=== PATIENT | female | born 1985 | race Caucasian/White ===

== ENCOUNTER → 2023-12-26 16:34 | Outpatient (CLI) | payer BC, SELFPAY ==
--- NOTE | 2023-12-26 16:35 | DI.US.S_ITS ---
PROCEDURE: US EXTREMITY NONVASC LOWER LT INDICATIONS: subcutaneous thigh mass TECHNIQUE: Real-time scanning was performed of the left proximal anterior thigh, with image documentation. COMPARISON: None. FINDINGS: Underneath the palpable abnormality in the anterior-proximal left thigh, there is a 1.1 x 0.4 x 1.1 cm subcutaneous mass that is hyperechoic to the surrounding fat without internal vascularity. IMPRESSION: Indeterminate 1.1 cm subcutaneous mass that does not match sonographic characteristics of a lipoma. Percutaneous sampling with ultrasound-guided biopsy or MRI of the left femur with and without contrast recommended for further evaluation. Dictated by: Bhanu Sawant M.D. on 12/27/2023 at 9:56 Approved by: Bhanu Sawant M.D. on 12/27/2023 at 10:00
== END ==
PROVIDERS: PCP Student in an Organized Health Care Education/Training Program; Referring Provider Student in an Organized Health Care Education/Training Program; Visit Provider Student in an Organized Health Care Education/Training Program
DX: R22.42 Localized swelling, mass and lump, left lower limb (principal)
CPT/HCPCS: 76882

== ENCOUNTER → 2024-01-17 13:39 | Outpatient (CLI) | payer BC, SELFPAY ==
--- NOTE | 2024-01-17 15:03 | DI.MRI.S_ITS ---
PROCEDURE: MR FEMUR LT WO/W CON INDICATIONS: subcutaneous mass TECHNIQUE: Noncontrast coronal T1 spin echo and STIR, sagittal T1 spin echo with fat saturation and STIR, axial T1 spin echo and T2 fast spin echo with fat saturation. After the administration of contrast, axial/sagittal/coronal T1 spin echo with fat saturation through the left thigh . COMPARISON: [facility], US, US EXTREMITY NONVASC LOWER LT, 12/26/2023, 17:02. FINDINGS: Image quality: Excellent. Bones: The visualized bone marrow demonstrates normal signal on all sequences. The overlying cortex appears intact. No abnormal intraosseous enhancement. Soft tissues: Fiducial marker is placed over antral medial aspect of left upper thigh. No enhancing soft tissue mass is identified. Subtle 8 x 6 mm slightly T2 hyperintense structure involving subcutaneous soft tissue just inferior to the site of the marker and show no contrast enhancement and is T1 isointense to adjacent subcutaneous fat. This is best seen on series 10, image 18. The scanned muscles demonstrate normal overall bulk and internal signal. IMPRESSION: 1. Finding is suggestive of a tiny 8 x 6 mm lipoma in left anterior upper thigh subcutaneous soft tissue at patient's reported area of palpable lump. No enhancing soft tissue mass or drainable fluid collection. 2. No marrow signal abnormality. No fracture or dislocation. No abnormal intraosseous enhancement. 3. No area of abnormal intramuscular enhancement. Dictated by: Romeo Bashir M.D. on 01/17/2024 at 15:23 Approved by: Romeo Bashir M.D. on 01/17/2024 at 16:59
== END ==
PROVIDERS: PCP Student in an Organized Health Care Education/Training Program; Referring Provider Student in an Organized Health Care Education/Training Program; Visit Provider Student in an Organized Health Care Education/Training Program
DX: R22.9 Localized swelling, mass and lump, unspecified (principal)
CPT/HCPCS: 73720; A9579

== ENCOUNTER → 2024-10-13 16:16 | Outpatient (CLI) | payer BC, SELFPAY ==
--- NOTE | 2024-10-13 16:18 | DI.RAD.S_ITS ---
PROCEDURE: XR FOOT RT MIN 3V INDICATIONS: FOOT PAIN TECHNIQUE: 3 views of the foot were acquired. COMPARISON: None. FINDINGS: Bones: No fractures or dislocations. No suspicious bony lesions. Soft tissues: No tibiotalar joint effusion. Achilles tendon appears normal. IMPRESSION: No acute bony abnormality. Approved by: Jorge A Moore M.D. on 10/14/2024 at 13:25
--- NOTE | 2024-10-13 16:18 | DI.RAD.S_ITS ---
PROCEDURE: XR FOOT LT MIN 3V INDICATIONS: FOOT PAIN TECHNIQUE: 3 views of the foot were acquired. COMPARISON: None. FINDINGS: Bones: No fractures or dislocations. No suspicious bony lesions. Soft tissues: No tibiotalar joint effusion. Achilles tendon appears normal. IMPRESSION: No acute bony abnormality. Approved by: Jorge A Moore M.D. on 10/14/2024 at 13:24
== END ==
PROVIDERS: PCP Student in an Organized Health Care Education/Training Program; Referring Provider Podiatrist Foot & Ankle Surgery; Visit Provider Podiatrist Foot & Ankle Surgery
DX: M79.671 Pain in right foot (principal); M79.672 Pain in left foot
CPT/HCPCS: 73630

== ENCOUNTER → 2024-12-16 07:12 | Outpatient (CLI) | payer BC, SELFPAY ==
[2024-12-16 09:10] LABS: Cholesterol 177 mg/dL (140-199); HDL Cholesterol 61 mg/dL (40-60); Triglycerides 44 mg/dL (35-150)
== END ==
PROVIDERS: PCP Student in an Organized Health Care Education/Training Program; Referring Provider Student in an Organized Health Care Education/Training Program; Visit Provider Student in an Organized Health Care Education/Training Program
DX: Z13.220 Encounter for screening for lipoid disorders (principal)
CPT/HCPCS: 36415; 80061